=== PATIENT | male | born 1970 | race African-American/Black ===

== ENCOUNTER 2021-07-07 10:46 | Observation (INO) | payer OTHER ==
[2021-07-07 11:12] LABS: #Eosinphils 0.1 10x3/uL (0.0-0.5); #Monocytes 0.4 10x3/uL (0.0-1.1); #Neutrophils 2.6 10x3/uL (1.5-8.4); %Basophils 0.5 % (0.0-2.0); %Eosinophils 2.5 % (0.0-6.0); %Lymphocytes 29.1 % (18.0-47.0); %Monocytes 9.2 % (0.0-10.0); %Neutrophils 58.5 % (40.0-75.0); Hemoglobin 13.9 g/dL (13.5-17.5); Mean Corpuscular HGB CONC 32.8 g/dL (32.0-36.0); Mean Corpuscular Volume 88.3 fl (81.2-95.1); Mean Platelet Volume 10.8 fl (7.4-10.4); Platelet Count 211 10x3/uL (150-450); RBC Distribution Width 12.7 % (11.5-14.5); White Blood Cell (WBC) Count 4.4 10x3/uL (3.5-10.5)
[2021-07-07 11:41] LABS: ALT (SGPT) 31 U/L (8-55); AST (SGOT) 16 U/L (5-34); Albumin 3.9 g/dL (3.5-5.0); Alkaline Phosphatase 78 U/L (40-110); Anion Gap 12 mmol/L (10-20); BUN (Urea Nitrogen) 17 mg/dL (8.9-20.6); Calc. Creatinine Clearance 0 mL/min (70-130); Carbon Dioxide 27 mmol/L (22-29); Chloride 108 mmol/L (98-107); Globulin 2.9 g/dL (2.4-3.5); Glucose 127 mg/dL (70-105); Lipase 39 U/L (8-78); Potassium 4.2 mmol/L (3.5-5.1); Protein, Total 6.8 g/dL (6.0-8.3); Sodium 143 mmol/L (136-145)
[2021-07-07] MEDS ORDERED: Ondansetron PF 4 MG/2 ML Vial IVP PRN (13:32)
[2021-07-07] MEDS ORDERED: Nitroglycerin 0.4 MG TAB (25 Tab Bottle) SL PRN (13:34)
[2021-07-07 13:46] LABS: Troponin I Less than 0.010 ng/mL (< 0.028)
[2021-07-07 15:46] VITALS: BMI 30.7
[2021-07-07 16:25] LABS: Troponin I Less than 0.010 ng/mL (< 0.028)
[2021-07-07] MEDS: Famotidine 20 MG TAB PO SCH (20:01)
[2021-07-07] MEDS: Acetaminophen 325 MG TAB PO PRN (20:01)
[2021-07-07] MEDS ORDERED: Atorvastatin Calcium 40 MG TAB PO SCH (21:00)
[2021-07-08] MEDS: Acetaminophen 325 MG TAB PO PRN (00:04)
[2021-07-08 05:30] LABS: #Eosinphils 0.1 10x3/uL (0.0-0.5); #Monocytes 0.4 10x3/uL (0.0-1.1); %Basophils 0.4 % (0.0-2.0); %Eosinophils 2.4 % (0.0-6.0); %Lymphocytes 33.9 % (18.0-47.0); %Monocytes 8.6 % (0.0-10.0); Hemoglobin 12.9 g/dL (13.5-17.5); Mean Corpuscular HGB CONC 32.5 g/dL (32.0-36.0); Mean Corpuscular Hemoglobin 28.4 pg (27.0-33.0); Mean Corpuscular Volume 87.4 fl (81.2-95.1); Mean Platelet Volume 11.1 fl (7.4-10.4); Platelet Count 192 10x3/uL (150-450); RBC Distribution Width 12.7 % (11.5-14.5); Red Blood Cell (RBC) Count 4.54 10x6/uL (4.32-5.72); White Blood Cell (WBC) Count 5.1 10x3/uL (3.5-10.5)
[2021-07-08 05:45] LABS: Anion Gap 13 mmol/L (10-20); BUN (Urea Nitrogen) 19 mg/dL (8.9-20.6); Calc. Creatinine Clearance 134 mL/min (70-130); Calcium 8.9 mg/dL (7.8-10.44); Carbon Dioxide 25 mmol/L (22-29); Cardiac Risk 5.3 (Less than 4.5); Chloride 107 mmol/L (98-107); Cholesterol 181 mg/dl (< 200 Desired); Glucose 103 mg/dL (70-105); HDL Cholesterol 34 mg/dL (>60 Neg Risk); LDL Cholesterol, Calculated 112 mg/dL; Potassium 3.6 mmol/L (3.5-5.1); Sodium 141 mmol/L (136-145); Triglycerides 173 mg/dL (Less than 150)
[2021-07-08 07:08] LABS: #Neutrophils 2.8 10x3/uL (1.5-8.4); %Neutrophils 54.7 % (40.0-75.0)
[2021-07-08] MEDS ORDERED: Allopurinol 300 MG TAB PO SCH (09:00)
[2021-07-08] MEDS ORDERED: Amlodipine 10 MG TAB PO SCH (09:00)
[2021-07-08] MEDS ORDERED: Lisinopril 20 MG TAB PO SCH (09:00)
[2021-07-08] MEDS ORDERED: Cholecalciferol 1,000 UNITS (25 MCG) TAB PO SCH (09:00)
[2021-07-08] MEDS ORDERED: Enoxaparin Sodium 30 MG/0.3 ML SYRINGE SC SCH (09:00)
[2021-07-08] MEDS ORDERED: Aspirin 81 mg Enteric Coated Tablet PO SCH (09:00)
[2021-07-08] MEDS: Famotidine 20 MG TAB PO SCH (09:14)
[2021-07-08 12:48] VITALS: BP 139/81
[2021-07-08 13:01] LABS: Hemoglobin A1c 5.8 % (4.0-6.0)
[2021-07-08 16:49] LABS: SARS-CoV-2 PCR by NAA Not Detected (NotDetected)
[2021-07-08 17:02] VITALS: TEMP 98.7
[2021-07-09] MEDS ORDERED: Enoxaparin Sodium 40 MG/0.4 ML SYRINGE SC SCH (09:00)
== END 2021-07-08 18:01 | disposition home or self-care (01) ==
LOC: CSHERS 10:46 → CSHTELE 12:36 → INTOOBSV 13:28 → CSHTELE 13:28 → UNDOADMOB 13:28
PROVIDERS: ADMIT Internal Medicine; ATTEND Hospitalist
DX: R07.9 Chest pain, unspecified (principal); I10 Essential (primary) hypertension; Z79.899 Other long term (current) drug therapy; Z91.81 History of falling; E78.2 Mixed hyperlipidemia; M10.9 Gout, unspecified; Z20.822 Contact with and (suspected) exposure to COVID-19
CPT/HCPCS: 36415; 70450; 71045; 80048; 80053; 80061; 83036; 83690; 84484; 85025; 93005; 93010; 93306; 93880; 94760; G0378; J1650; U0003; U0005

== ENCOUNTER 2023-04-10 06:34 | Day surgery (SDC) | payer OTHER ==
[2023-04-06 13:07] VITALS: BMI 31.4
[2023-04-10] MEDS ORDERED: PROPOFOL 40 ML ONE (07:38)
[2023-04-10] MEDS ORDERED: PROPOFOL 20 ML ONE ×2 (08:15→08:50)
[2023-04-10] MEDS ORDERED: fentaNYL 50 mcg/mL 1 mL Vial ONE (08:25)
== END 2023-04-10 09:38 | disposition home or self-care (01) ==
LOC: CSHSDC 06:34
PROVIDERS: ATTEND Internal Medicine Gastroenterology
PROC: 0DJD8ZZ Inspection of Lower Intestinal Tract, Via Natural or Artificial Opening Endoscopic (ICD-10-PCS; principal; 2023-04-10)
DX: K92.1 Melena (principal); K64.8 Other hemorrhoids; I10 Essential (primary) hypertension; E11.9 Type 2 diabetes mellitus without complications; E78.5 Hyperlipidemia, unspecified; Z86.010 Personal history of colon polyps
CPT/HCPCS: J2704; J3010